=== PATIENT | male | born 1975 | race Hispanic/Latino ===

== ENCOUNTER 2018-12-26 12:36 | Day surgery (SDC) | payer BC ==
[2018-12-26] MEDS ORDERED: SODIUM CHLORIDE 0.9% 1000 ML 1,000 ML ONE (13:19)
--- NOTE | 2018-12-26 13:29 | Anesthesia Consultation ---
Anesthesia Consult and Med Hx Date of service: 12/26/18 - Airway Anesthetic Teeth Evaluation: Good ROM Head & Neck: Adequate Mental/Hyoid Distance: Adequate Mallampati Class: Class III Intubation Access Assessment: Possibly Difficult - Pulmonary Exam CTA: Yes - Cardiac Exam Cardiac Exam: RRR - Pre-Operative Health Status ASA Pre-Surgery Classification: ASA2 Proposed Anesthetic Plan: MAC - Pulmonary Hx Smoking: No Hx Respiratory Symptoms: No - Cardiovascular System Hx Hypertension: Yes (took metoprolol this morning) - Central Nervous System CVA: No - Gastrointestinal Hx Gastroesophageal Reflux Disease: No - Endocrine Hx Renal Disease: No Hx Liver Disease: No Hx Insulin Dependent Diabetes: No Hx Non-Insulin Dependent Diabetes: No Hx Thyroid Disease: No - Other Systems Hx Obesity: No - Additional Comments Anesthesia Medical History Comments: No hx anesthetic complications.
--- NOTE | 2018-12-26 13:29 | Anesthesia Day of Surgery ---
Anesthesia Day of Surgery - Day of Surgery Patient Examined: Yes Patient H&P Reviewed: Yes Patient is NPO: Yes Beta Blockers: Yes
[2018-12-26] MEDS ORDERED: PROPOFOL 200 MG/20 ML VIAL IV ONE (14:44)
[2018-12-26] MEDS ORDERED: SODIUM CHLORIDE 0.9% 1000 ML 1,000 ML IV SCH (15:00)
--- NOTE | 2018-12-26 15:11 | Procedure Note ---
Date of procedure: 12/26/18 Pre-op diagnosis: GERD Post-op diagnosis: other (Moderate,Erosive Esophagitis/R/O Eosinophilic Esophagitis/Gastritis/R/O Celiac Disease) Procedure: EGD with Biopsy Anesthesia: MAC Surgeon: HUGO LICEA Estimated blood loss: minimal Pathology: list Specimen disposition: to lab Condition: stable Disposition: same day (42).)
--- NOTE | 2018-12-26 15:15 | Operative Report ---
PROCEDURE: EGD with biopsy. INDICATIONS: This is a 43-year-old white male who has been having complaints of GERD symptoms. EGD was done to assess for the severity of his erosive esophagitis and any associated upper GI pathology. DESCRIPTION OF PROCEDURE: Procedure was done after getting informed consent with MAC anesthesia. Instrument was passed through the hypopharynx into the esophagus, which showed moderately severe erosive esophagitis and possibly the early stages of Elliott's esophagus. Biopsy was done from the distal esophagus to assess for the severity of the erosive esophagitis as well as from the midesophagus to rule out eosinophilic esophagitis. Stomach showed mild gastritis. Biopsy was done from the gastric antrum, gastric body, and angular incisura to rule out for H. pylori. No ulcers were noted in the straight or the retroverted view. The pylorus was patent. Duodenum in the first and second portion appeared normal. Biopsy was done from the second part to rule out for possible associated celiac disease. There was minimal bleeding associated with the procedure. No complications associated with the procedure. ASSESSMENT: Moderately severe erosive esophagitis, rule out eosinophilic esophagitis, gastritis, rule out celiac disease. PLAN: Plan is to treat the patient with PPI, await for the biopsy results. Avoid aspirin and aspirin-related products for the next few days and have the patient follow up in the office in 1-2 weeks' time. The procedure was done in the GI lab with assistance of the GI lab team, which included Moni ROYAL as well as Kennedy stokes and with assistance of Anesthesia. JOB# [id number] HARLEY/JAMIA
[2018-12-26 15:33] VITALS: BP 120/72
--- NOTE | 2018-12-27 16:47 | Post Anesthesia Evaluation ---
- Post Anesthesia Evaluation Patient Participated: Yes Airway Patent: Yes Stable Respiratory Function: Yes Nausea/Vomiting: No Temp > 96.8F: Yes Pain Manageable: Yes Adequeate Hydration: Yes Anesthesia Complications: No Block Receding Appropriately: Not Applicable Patient on Ventilator: No
== END 2018-12-26 12:37 | disposition home or self-care (01) ==
LOC: GIO 12:36
DX: K21.0 Gastro-esophageal reflux disease with esophagitis (principal); K29.70 Gastritis, unspecified, without bleeding; K31.89 Other diseases of stomach and duodenum; I10 Essential (primary) hypertension; Z72.89 Other problems related to lifestyle; Z79.899 Other long term (current) drug therapy; Z98.890 Other specified postprocedural states
CPT/HCPCS: 43239; 88305; 88342; J2704; J7030